=== PATIENT | male | born 1985 | race Caucasian/White ===

== ENCOUNTER 2024-12-19 15:10 | Emergency (ER) | payer OTHER, SELFPAY ==
[2024-12-19 15:29] VITALS: BP 123/87; PULSE 113; RESP 17; O2SAT 97
[2024-12-19 15:30] VITALS: BP 123/87; BP 154/84; PULSE 118; PULSE 124; RESP 16; TEMP 36.7; O2SAT 98; BMI 26.9
--- NOTE | 2024-12-19 15:35 | ED.BACK ---
HPI - Back Pain/Injury General Chief Complaint: Back Pain/Injury Stated Complaint: back pain Time Seen by Provider: 12/19/24 15:35 Source: patient History of Present Illness HPI Narrative: Patient is a 39-year-old male history of chronic back pain secondary to a fractured back he states this was a proximally 4 years ago not sure what level. States that he is having increased pain to his midthoracic back. States that he feels like he is having some tingling sensation and numbness to his upper and lower extremities denies any trauma or falls he denies any other symptoms. Patient states that he went to walk-in clinic for this but was sent here for further imaging evaluation treatment. Patient was able to stand bear weight ambulate unassisted here in the emergency department. He states that he gets tingling sensations and numbness intermittently to all his extremities but denies any actual headache visual disturbance. He states that this started slowly a proximally 5 days ago. States that the pain is causing him significant amount of discomfort to the point that he feels like he is going to ?pass out. Related Data Previous Rx's ?Medication ?Instructions ?Recorded diazepam 5 mg tablet (Valium) 5 mg PO BEDTIME PRN muscle spasm 5 12/19/24 days #5 tabs methylprednisolone 4 mg tablets in See Rx Instructions PO .COMPLEX 12/19/24 a dose pack (Medrol (Alfonso)) #21 ea oxycodone-acetaminophen 5 mg-325 1 tab PO Q8H PRN pain 3 days #9 12/19/24 mg tablet (Percocet) tabs Allergies Allergy/AdvReac Type Severity Reaction Status Date / Time No Known Drug Allergies Allergy Verified 12/19/24 15:34 Review of Systems Review of Systems Narrative: General: Denies fever, chills, weight loss HEENT: Denies headache, eye drainage, eye irritation, head trauma, sore throat, voice change Cardiovascular: Denies any chest pain, palpitations, tachycardia Respiratory: Denies any shortness of breath, cough, wheeze, stridor GI/: Denies any abdominal pain, nausea, vomiting, diarrhea, bright red blood per rectum, melanotic stools, urinary frequency, urinary retention, dysuria, hematuria MSK: Positive back pain Skin: Denies any rashes, lesions, discoloration Neuro: Positive tingling sensation to all 4 extremities. Denies any headache, lightheadedness, dizziness, fainting, weakness Psych: Denies SI/HI Exam Narrative Exam Narrative: General: Cooperative, well-developed, not in acute distress HEENT: Normocephalic, atraumatic, PERRLA, normal sclera, eyelids normal Neck: Active full range of motion, atraumatic Chest: Normal to inspection, negative crepitus, no overlying erythema ecchymosis Respiratory: Normal respiratory effort, not in acute respiratory distress, clear to auscultation bilaterally negative cough, wheeze, tachypnea, rhonchi, rales Cardiology: Regular rate rhythm negative gallop, murmur, rubs GI/: No tenderness to palpation, soft, non rigid, normal to inspection, exam deferred MSK: Full active range of motion in all 4 extremities, atraumatic, no tenderness to palpation of any bony prominences Skin: No rashes or lesions noted Neuro: NIH of 0 no focal deficits patient was able to stand walk ambulate without assistance here. 5/5 strength bilaterally to upper and lower extremities. Alert awake oriented x3, moves all 4 extremities spontaneously, cranial nerves intact, able to answer all questions appropriately follows commands appropriately Psych: Cooperative, negative suicidal or homicidal ideations Initial Vital Signs Initial Vital Signs: Vital Signs Pulse Rate 113 H 12/19/24 15:29 Respiratory Rate 17 12/19/24 15:29 Blood Pressure 123/87 12/19/24 15:29 Pulse Oximetry 97 12/19/24 15:29 Course Orders Ordered: ED Orders 12/19/24 15:39 CBC Auto Diff [Complete Blood Count AUTO DIFF] Stat CMP [Comprehensive Metabolic Panel] Stat Lipase Stat MAG [Magnesium] Stat PT [Prothrombin Time INR] Stat PTT Partial Thromboplastin Stat Troponin & CK Cardiac Panel Stat EKG-12 Lead Stat 12/19/24 16:01 CT angio chest abdomen pelvis Stat Discontinued Medications Dexamethasone (Dexamethasone 10 Mg/Ml Vial) 10 mg IV NOW ONE Stop: 12/19/24 15:42 Last Admin: 12/19/24 16:05 Dose: 10 mg Documented By: LAKESHIA Hydromorphone HCl (Hydromorphone 1 Mg/Ml Syringe) 1 mg IV NOW ONE Stop: 12/19/24 16:40 Sodium Chloride (Normal Saline 0.9%) 1,000 mls @ 1,000 mls/hr IV BOLUS ONE Stop: 12/19/24 16:37 Last Infusion: 12/19/24 16:37 Dose: Infused Documented By: Admin: 12/19/24 15:45 Dose: 1,000 mls/hr Documented By: LAKESHIA Morphine Sulfate (Morphine 4 Mg/Ml Inj) 4 mg IV NOW ONE Stop: 12/19/24 15:39 Last Admin: 12/19/24 15:44 Dose: 4 mg Documented By: LAKESHIA Ondansetron HCl (Ondansetron 4 Mg/2 Ml Inj) 4 mg IV NOW ONE Stop: 12/19/24 15:39 Last Admin: 12/19/24 15:44 Dose: 4 mg Documented By: LAKESHIA Vital Signs Vital signs: Vital Signs - 8 hr 12/19/24 15:29 12/19/24 15:29 12/19/24 15:30 Temperature 98.0 F Pulse Rate 113 H 118 H Respiratory Rate 17 16 Blood Pressure 123/87 123/87 Pulse Oximetry 97 98 Oxygen Delivery Method Room Air 12/19/24 15:30 12/19/24 15:30 12/19/24 16:02 Temperature Pulse Rate 124 H Respiratory Rate 18 Blood Pressure 154/84 H Pulse Oximetry 98 96 Oxygen Delivery Method Room Air 12/19/24 16:03 12/19/24 16:03 Temperature Pulse Rate 89 Respiratory Rate Blood Pressure 130/88 Pulse Oximetry 98 Oxygen Delivery Method Room Air MDM - Back Pain/Injury Lab Data 12/19/24 15:39 12/19/24 15:39 Labs: Lab Results 12/19/24 Range/Units 15:39 WBC 9.0 (4.5-11.0) X10^3/uL RBC 5.40 (4.5-5.9) X10^6/uL Hgb 17.0 (13.5-17.5) g/dL Hct 49.1 (41-53) % MCV 90.8 (80-100) fL MCH 31.4 (26-34) PG MCHC 34.6 (30-36) % RDW 13.9 (11.6-14.8) % Plt Count 294 (150-400) X10^3/uL Neut % (Auto) 55.3 (50-75) % Lymph % (Auto) 33.9 (25-40) % [place] % (Auto) 6.9 (3-14) % Eos % (Auto) 3.2 (2-4) % Baso % (Auto) 0.7 (0-2) % Neut # (Auto) 4900 (0283-6220) /uL Lymph # (Auto) 3000 (5705-7692) /uL [place] # (Auto) 600 (0-900) /uL Eos # (Auto) 300 (0-450) /uL Baso # (Auto) 100 (0-100) /uL PT 11.0 (9.4-12.5) SECONDS INR 1.0 (0.9-1.3) APTT 24 L (25.1-36.5) SECONDS Sodium 136 L (137-145) mmol/L Potassium 3.9 (3.4-5.1) mmol/L Chloride 99 (98-107) mmol/L Carbon Dioxide 23 (22-32) mmol/L BUN 9 (9-20) mg/dL Creatinine 0.95 (0.66-1.25) mg/dL Estimated GFR > 60 (>60) mL/min BUN/Creatinine Ratio 9.5 (6-22) Glucose 89 (70-99) mg/dL Calcium 10.1 (8.4-10.2) mg/dL Magnesium 1.9 (1.6-2.3) mg/dL Total Bilirubin 1.0 (0.2-1.3) mg/dL AST 135 H (17-59) IU/L ALT 146 H (<50) IU/L Alkaline Phosphatase 72 (38-126) U/L Total Creatine Kinase 767 H (55-170) U/L Troponin I < 0.012 (0.01-0.034) ng/mL Total Protein 8.4 H (6.3-8.2) g/dL Albumin 5.2 H (3.5-5.0) g/dL Globulin 3.2 (1.7-4.1) g/dL Albumin/Globulin Ratio 1.6 (1.0-2.8) Lipase 150 (23-300) U/L ECG Data Interpretation: EKG interpreted ED physician sinus 83 beats per minute QTC 430 QRS DC interval within normal limits no STEMI MDM Narrative Medical decision making narrative: 39-year-old male history of acute on chronic back pain secondary to history of a fractured back not requiring any surgery comes into the ED from home for evaluation of midthoracic back pain started approximately 5 days ago slowly getting worse, he states that the pain is so bad it causes him to feel like he is going to pass out also states that he feels like the pain is causing intermittent tingling sensation to his extremities however patient 5/5 strength NIH of 0 was able to stand bear weight ambulate unassisted here. Went to the walk-in clinic prior to arrival but due to symptoms was instructed to come to the ED. patient normotensive, EKG nonischemic, did obtain CT angio chest abdomen and pelvis to rule out dissection which was not evident on imaging. Patient lab work without any leukocytosis, troponin negative, noted to have slightly elevated AST ALT 135, 146 respectively, most likely reactive in nature, he is not having any actual abdominal pain. Patient received fluids, Decadron and morphine for his symptoms with improvement, patient will be sent home with symptomatic relief which include muscle relaxers and instructed to follow up with the primary care in outpatient setting he was given strict return precautions verbalized understanding and agrees to being discharged home with outpatient follow up Discharge Plan Departure Patient Disposition: Home Clinical Impression: Back pain Activity Restrictions/Additional Instructions: Please follow up with your primary care doctor Please read the discharge instructions sheet carefully and bring all papers to all doctor follow-up visits, as it may contain information that your doctor may want to see. Disease processes change and evolve, if your symptoms worsen or if you develop any new symptoms that are concerning to you please return for evaluation. Your evaluation today does not show any evidence of any life-threatening/serious illnesses requiring admission to the hospital or surgery. Please follow-up with your doctor for re-evaluation in approximately 1 day. Seek immediate medical attention for any worrisome symptoms. *If you do not have a primary care provider please contact the [facility] Resource line at [phone]. They will ask some questions about your medical history and help get you set up with a doctor in the community. Prescriptions: New methylprednisolone [Medrol (Alfonso)] 4 mg tablets,dose pack See Rx Instructions .ROUTE .COMPLEX Qty: 21 0RF Rx Instructions: for 6 days oxycodone-acetaminophen [Percocet] 5-325 mg tablet 1 tab PO Q8H PRN (Reason: pain) 3 Days Qty: 9 0RF diazepam [Valium] 5 mg tablet 5 mg PO BEDTIME PRN (Reason: muscle spasm) 5 Days Qty: 5 0RF Referrals: Miscellaneous,Doctor, MD [Primary Care Provider, Medical] Stand Alone Forms: Patient Portal/API
[2024-12-19] MEDS: ONDANSETRON 4 MG/2 ML INJ IV (15:44)
[2024-12-19] MEDS: MORPHINE 4 MG/ML INJ IV (15:44)
[2024-12-19] MEDS: SODIUM CHLORIDE 0.9% 1,000 ML 1000 ML IV (15:45)
[2024-12-19 15:48] LABS: Add Manual Diff / Slide Review NO; Hematocrit 49.1 % (41-53); Hemoglobin 17.0 g/dL (13.5-17.5); Lymphocytes Absolute Auto 3000 /uL (1100-4500); Mean Corpuscular HGB Conc 34.6 % (30-36); Mean Corpuscular Hemoglobin 31.4 PG (26-34); Mean Corpuscular Volume 90.8 fL (80-100); Platelet Count 294 X10^3/uL (150-400)
[2024-12-19 15:57] LABS: INR 1.0 (0.9-1.3); Prothrombin Time 11.0 SECONDS (9.4-12.5)
[2024-12-19 16:00] LABS: PTT Partial Thromboplastin Tim 24 SECONDS (25.1-36.5)
[2024-12-19 16:01] LABS: HEMOLYSIS 37 (0-50)
--- NOTE | 2024-12-19 16:01 | DI.CT.S_ITS ---
PROCEDURE: CT ANGIO CHEST ABDOMEN PELVIS INDICATIONS: Rule out dissection, mid back pain TECHNIQUE: Precontrast 5 mm thick sections acquired from the lung apices to the iliac crests. After the administration of intravenous contrast, 2.5 mm thick sections again acquired from the lung apices to the iliac crests. Maximum intensity projection (MIP) oblique sagittal and coronal reformats were then acquired. For radiation dose reduction, the following was used: automated exposure control. COMPARISON: None. FINDINGS: Image quality: Diagnostic. AORTA: No aortic aneurysm. No acute aortic syndrome. No dissection. CHEST: Lower Neck: No enlarged lymph nodes. Thyroid: No thyroid nodules which require sonographic evaluation. Axillae: No enlarged lymph nodes. Chest Wall: Unremarkable. Lungs and Pleura: No pneumothorax or pleural effusions. No consolidation or suspicious nodules. Heart: Heart size is normal. No pericardial effusion. Thoracic Vessels: Pulmonary arteries demonstrate normal size. Mediastinum and Paty: No enlarged lymph nodes. Esophagus: No wall thickening. No hiatal hernia. ABDOMEN: Liver: No solid mass. Diffuse hepatic steatosis. Gallbladder: No radiopaque gallstones or wall thickening. Biliary ducts: No biliary dilation. Pancreas: No ductal dilation. Spleen: Size is within normal limits. Adrenal Glands: No adrenal nodules. Kidneys and Ureters: No hydronephrosis. No solid mass. No complex renal cystic lesion which requires follow up. Stomach and Bowel: Normal colonic caliber, without significant wall thickening. Normal appendix. Peritoneum: No abnormal intraperitoneal fluid. No free air. Ventral Wall: No hernia. Abdominal Nodes: No retroperitoneal or mesenteric adenopathy by size criteria. Vessels: Inferior vena cava is normal in size. PELVIS: Pelvic Organs: Unremarkable. Bladder: Unremarkable. Pelvic Nodes: No enlarged lymph nodes. Miscellaneous: No inguinal hernias are seen. Bones: Unremarkable. IMPRESSION: No acute aortic pathology. No acute abnormality in the chest, abdomen, or pelvis. Dictated by: Bernard Mckeon M.D. on 12/19/2024 at 16:33 Approved by: Bernadr Mckeon M.D. on 12/19/2024 at 16:36
[2024-12-19 16:02] VITALS: RESP 18; O2SAT 96
[2024-12-19 16:03] VITALS: BP 130/88; PULSE 89; O2SAT 98
[2024-12-19 16:06] LABS: Alanine Aminotransferase 146 IU/L (<50); Albumin 5.2 g/dL (3.5-5.0); Albumin Globulin Ratio 1.6 (1.0-2.8); Alkaline Phosphatase 72 U/L (38-126); Blood Urea Nitrogen 9 mg/dL (9-20); Calcium 10.1 mg/dL (8.4-10.2); Carbon Dioxide 23 mmol/L (22-32); Chloride 99 mmol/L (98-107); Creatine Kinase 767 U/L (55-170); Estimated Glomerular Filt Rate > 60 mL/min (>60); Globulin 3.2 g/dL (1.7-4.1); Glucose 89 mg/dL (70-99); Lipase 150 U/L (23-300); Magnesium 1.9 mg/dL (1.6-2.3); Potassium 3.9 mmol/L (3.4-5.1); Sodium 136 mmol/L (137-145); Total Protein 8.4 g/dL (6.3-8.2)
--- NOTE | 2024-12-19 16:07 | EKG_ITS ---
[address] [address] Test Date: 2024-12-19 Pat Name: Yuri Sauceda Department: [facility] Room: Gender: Male [employer] Supervisor: RICH : [id number] Requested By: Order Number: [id number] Reading MD: Gen Burns MD Measurements Intervals [place] Rate: 83 P: 71 SC: 138 QRS: 45 QRSD: 96 T: 37 QT: 366 QTc: 430 Interpretive Statements Normal sinus rhythm Electronically Signed On 12-19-2024 16:54:49 PDT by Gen Burns MD
[2024-12-19 16:20] LABS: Troponin I < 0.012 ng/mL (0.01-0.034)
[2024-12-19 16:30] VITALS: BP 129/87; PULSE 85; O2SAT 100
[2024-12-19 16:49] VITALS: BP 130/84; PULSE 79; RESP 17; O2SAT 98
== END 2024-12-19 17:14 | disposition home or self-care (01) ==
PROVIDERS: Emergency Provider Student in an Organized Health Care Education/Training Program
DX: M54.6 Pain in thoracic spine (principal)
CPT/HCPCS: 36415; 71275; 74174; 80053; 82550; 83690; 83735; 84484; 85025; 85610; 85730; 93005; 96361; 96374; 96375; 99284; J1100; J1171; J2270; J2405; Q9967